=== PATIENT | female | born 1950 | race Caucasian/White ===

== ENCOUNTER → 2016-10-21 | Outpatient (CLI) | payer MEDICARE, BC, OTHER ==
[2016-10-21 13:47] LABS: ALBUMIN 4.5 g/dL (3.5-5.0); ANION GAP 14 (5-19); BLOOD UREA NITROGEN 22 mg/dL (7-20); CARBON DIOXIDE 30 mmol/L (22-30); CHLORIDE 97 mmol/L (98-107); GLUCOSE 245 mg/dL (75-110); POTASSIUM 3.1 mmol/L (3.6-5.0); SODIUM 140.8 mmol/L (137-145)
[2016-10-22 16:40] LABS: A/G RATIO 1.1 (0.7-1.7); ALBUMIN 2 3.5 g/dL (2.9-4.4); ALPHA-1-GLOBULIN 2 0.2 g/dL (0.0-0.4); GAMMA GLOBULIN 0.9 g/dL (0.4-1.8); PROTEIN TOTAL SERUM 6.6 g/dL (6.0-8.5)
[2016-10-26 14:43] LABS: PTH RELATED PEPTIDE <1.1 pmol/L (.)
== END ==
LOC: OD 11:35
PROVIDERS: ATTEND Internal Medicine Nephrology
DX: E83.52 Hypercalcemia (principal)
CPT/HCPCS: 36415; 80048; 82040; 82397; 84165

== ENCOUNTER → 2016-11-05 | Outpatient (CLI) | payer MEDICARE, BC, OTHER | LOC: RAD 07:39 | PROVIDERS: ATTEND Internal Medicine Nephrology | DX: N18.3 Chronic kidney disease, stage 3 (moderate) (principal); E21.3 Hyperparathyroidism, unspecified | CPT/HCPCS: 78070; A9500; Q9969 ==

== ENCOUNTER 2016-12-02 06:54 | Day surgery (SDC) | payer MEDICARE, BC, OTHER ==
[2016-12-01 09:10] LABS: HEMATOCRIT 47.5 % (36.0-47.0); HEMOGLOBIN 16.1 g/dL (12.0-15.5); HGB HCT DIFFERENCE 0.8; MEAN CORPUSCULAR HEMOGLOBIN 30.1 pg (27.0-33.4); MEAN CORPUSCULAR HGB CONC 33.8 g/dL (32.0-36.0); MEAN CORPUSCULAR VOLUME 89 fl (80-97); RED BLOOD COUNT 5.35 10^6/uL (3.72-5.28); RED CELL DISTRIBUTION WIDTH 14.6 % (11.5-14.0); WHITE BLOOD COUNT 7.7 10^3/uL (4.0-10.5)
[2016-12-01 09:36] LABS: ANION GAP 11 (5-19); BLOOD UREA NITROGEN 17 mg/dL (7-20); CARBON DIOXIDE 35 mmol/L (22-30); CHLORIDE 95 mmol/L (98-107); GLUCOSE 290 mg/dL (75-110); POTASSIUM 3.2 mmol/L (3.6-5.0); SODIUM 140.7 mmol/L (137-145)
--- NOTE | 2016-12-01 12:00 | EKG REPORT ---
SEVERITY:- ABNORMAL ECG - SINUS BRADYCARDIA NONSPECIFIC IVCD WITH LAD LEFT VENTRICULAR HYPERTROPHY : Confirmed by: Vannessa Callaway MD 01-Dec-2016 11:59:36
[~2016-12-02 06:54] MED LIST: CIPROFLOXACIN 400 MG/D5W RTU 400 MG/200 ML RTUPB IV PRN; LIDOCAINE 0.5% INJ-PF (5 MG/ML) 50 ML SDV SUBCUT PRN; NORMAL SALINE 1000 ML (RENAL PATIENTS) IV PRN
[2016-12-02] MEDS ORDERED: LIDOCAINE 1%/EPINEPHRINE INJ 20 ML VIAL ONE (07:09)
[2016-12-02 07:40] LABS: PROTHROMBIN TIME 12.4 SEC (11.4-15.4)
[2016-12-02 07:41] LABS: PARTIAL THROMBOPLASTIN TIME 25.3 SEC (23.5-35.8)
[2016-12-02] MEDS ORDERED: MIDAZOLAM 2 MG/2 ML INJ ONE (08:32)
[2016-12-02] MEDS ORDERED: FENTANYL CITRATE INJ/PF 100 MCG/2 ML AMPUL ONE (08:32)
[2016-12-02] MEDS ORDERED: PROPOFOL INJ 200 MG/20 ML VIAL IV ONE (08:32)
[2016-12-02] MEDS ORDERED: FENTANYL CITRATE INJ/PF 100 MCG/2 ML AMPUL IV PRN ×3 (09:31)
[2016-12-02] MEDS ORDERED: DIPHENHYDRAMINE HCL 50 MG/ML VIAL IV PRN (09:31)
[2016-12-02] MEDS ORDERED: PROMETHAZINE HCL INJ 25 MG/1 ML VIAL IV PRN ×2 (09:31)
[2016-12-02] MEDS ORDERED: MEPERIDINE HCL/PF INJ 25 MG/1 ML DISP.SYRIN IV PRN (09:31)
--- NOTE | 2016-12-02 09:59 | Operative Report ---
Operative Report DATE OF SURGERY: 12/02/16 PREOPERATIVE DIAGNOSIS: Lipoma of the back POSTOPERATIVE DIAGNOSIS: Same OPERATION: Complete excision of back lipoma with drain placement SURGEON: JOHN SANDERSON FOREIGN BANKNOTE TELLER TRADER: JOEY KAPADIA ANESTHESIA: LMAC TISSUE REMOVED OR ALTERED: scant COMPLICATIONS: none ESTIMATED BLOOD LOSS: scant INTRAOPERATIVE FINDINGS: See below PROCEDURE: Patient was seen in the preoperative holding area where the back lipoma was marked. The patient was taken to the operating room where LMAC anesthesia was induced. She was placed in left lateral decubitus position, on beanbag with the central back exposed. The back was prepped and draped sterile fashion with Betadine. Surgical plan and surgical timeout were conducted. The skin was anesthetized 1% lidocaine with epinephrine. A longitudinal vertically oriented incision was made parallel to the spine [place] 4 cm lateral electrocautery and gentle traction. We'll dissection was taken down to the intact fascia in fact it was actually adherent to this area and we performed a resection of a 2 cm area ; Specimen was passed off into fragments as lipoma of the back. Hemostasis was achieved, large bleb placed secured with skin with a 2-0 Prolene suture brought out the right posterior lateral flap. The incision was closed with multiple 3- 0 Vicryl sutures, benzoin and Steri-Strips and compressive dressing. She tolerated the procedure well taken recovery in stable condition The physician laboratory chemical assistant, Ms. Kapadia, provided assistance during this case by: Assisting , retracting tissue, instillation of local anesthesia and closure of skin incisions.
--- NOTE | 2016-12-02 10:01 | PDOC DISCHARGE SUMMARY ---
Discharge Summary (SDC) - Discharge Final Diagnosis: Lipoma of the back Date of Surgery: 12/02/16 Discharge Date: 12/02/16 Condition: Good Treatment or Instructions: [facility] [address] [place], [place] [id number] Discharge Instructions: Back Surgery 1. General Information: a. Do not drive a car or operate machinery for 1-2 weeks or as long as taking narcotics for pain. b. Do not consume alcohol, tranquilizers, sleeping medications or any non- prescribed medications for 24 hours unless approved by your doctor or as long as taking pain medication. c. Do not make important decisions or sign any important papers for the first 24 hours after surgery. d. When discharged home the same day of surgery have a responsible person with you for the first night. 2. Activity Restrictions: 4 weeks. a. Avoid heavy lifting > 10 lbs, straining, sports, mowing lawn, shoveling snow, vacuum cleaning and bending over a lot. Limit bending to taking a shower and getting dressed. Sleep with head elevated (2 pillows). b. Walking is important to avoid blood clots in the legs and deep breathing can prevent pneumonia. c. It is fine to go up and down steps, ride in a car, and use a stationary bike with low resistance. 3. Treatment: a. The dressing can be removed the day after surgery and to shower then daily is fine, but you should not bathe in the tub or go swimming for 2 weeks. The paper strips (steri-strips) on the skin will fall off and can get wet with a shower, just pat them dry. The sutures dissolve and the strips will be removed in the office on your follow up visit if they have not fallen off by then. May shower 24 hours after surgery; if your incision was glued you may wash your neck and expect glue to fall off in about 2 weeks. b. Do not use oils, powders or lotion on your incision until after the first postoperative visit. Then you may begin to apply daily to the incision a cream of your choice (Vitamin E, cocoa butter, scar creams) to help soften the scar. Please teach patient drain care; patient and family to record drain output. c. If you are fair skinned it would be koenig to use sunscreen on the scar for the first 6 months or keep it covered to avoid tanning pigment deposits being trapped in the scar creating a dark line instead of a pink scar. 4. Medications: a. You may take narcotic prescription tablets for pain if needed, one or two every 4 hours (Percocet ). b. Stop the narcotic when able since you cannot take and drive and they may cause constipation. You may switch to plain Tylenol, Advil or Aleve as you transition from the narcotic. Many adults find good pain relief with Ibuprofen 600-800 mg three times a day with meals to work well to avoid narcotic use. High doses of Ibuprofen should only be used for short courses since it can cause indigestion, ulcer bleeding in the stomach and harm kidney function. c. You should resume all normal medications unless a change is specified by your doctors. d. a. If going home same day of surgery you should begin with clear liquids and if do well then advance to a normal diet with foods low in fat and protein. Small portion sizes may be koenig the first night to lessen risk of vomiting. b. When discharged after a hospital stay you may resume a normal diet. 6. Notify Physician If: a. Worsening of pain or swelling in neck, persistent bleeding at the operative site, nausea and vomiting, fever above 101, unable to urinate and bladder pressure after 8-12 hours, increased redness, drainage, or foul smelling discharge from the incision. b. If you have difficulty breathing or chest pain, call an ambulance and/or go to the Emergency Room. 7. Follow Up Care: a. Schedule a follow up appointment with your doctor for 2 weeks. In the event of any postoperative problems or questions or you may call the office during business hours or the On-Call physician evenings and weekends at [facility]. [facility] 8. I understand the instructions for my postoperative care as described above and a copy has been given to me. Patient/Significant Other Witness Date Prescriptions: Oxycodone HCl/Acetaminophen [Percocet 5-325 mg Tablet] 1 - 2 tab PO ASDIR PRN # 15 tablet PRN Reason: Discharge Diet: As Tolerated Discharge Activity: Activity As Tolerated Home Care Assistance: None Needed Report the Following to Your Physician Immediately: Shortness of Breath, Increase in Pain, Fever over 101 Degrees
[2016-12-02] MEDS: FENTANYL CITRATE INJ/PF 100 MCG/2 ML AMPUL ONE ×2 (10:25→10:35)
[2016-12-02] MEDS ORDERED: OXYCODONE-ACETAMINOPHEN 5-325 MG TABLET ONE (11:15)
[2016-12-02] MEDS ORDERED: OXYCODONE-ACETAMINOPHEN 5-325 MG TABLET PO ONE (11:45)
[2016-12-02 13:23] VITALS: BP 123/72
== END 2016-12-02 12:25 | disposition home or self-care (01) ==
LOC: OROUT 06:54
PROVIDERS: ATTEND Surgery
PROC: 0JB70ZX Excision of Back Subcutaneous Tissue and Fascia, Open Approach, Diagnostic (ICD-10-PCS; principal; 2016-12-02 09:00)
DX: D17.1 Benign lipomatous neoplasm of skin and subcutaneous tissue of trunk (principal); I10 Essential (primary) hypertension; M06.9 Rheumatoid arthritis, unspecified; I50.9 Heart failure, unspecified; J44.9 Chronic obstructive pulmonary disease, unspecified; G89.29 Other chronic pain; E11.40 Type 2 diabetes mellitus with diabetic neuropathy, unspecified; D50.9 Iron deficiency anemia, unspecified; G47.33 Obstructive sleep apnea (adult) (pediatric); M19.90 Unspecified osteoarthritis, unspecified site; E78.00 Pure hypercholesterolemia, unspecified; E21.3 Hyperparathyroidism, unspecified; N27.0 Small kidney, unilateral; I99.9 Unspecified disorder of circulatory system; E55.9 Vitamin D deficiency, unspecified; Z79.899 Other long term (current) drug therapy; Z88.8 Allergy status to other drugs, medicaments and biological substances; Z88.5 Allergy status to narcotic agent; Z88.0 Allergy status to penicillin; Z86.73 Personal history of transient ischemic attack (TIA), and cerebral infarction without residual deficits; Z95.5 Presence of coronary angioplasty implant and graft; Z79.82 Long term (current) use of aspirin; Z79.02 Long term (current) use of antithrombotics/antiplatelets; Z79.51 Long term (current) use of inhaled steroids; Z79.4 Long term (current) use of insulin
CPT/HCPCS: 93005; 36415 ×2; 82962; 82947; 84132; 85027; 85610; 85730; 80048; 88304 ×2; 71020; 93010; 21931; J2250; J3010; J3490; A9270; J2704; J0744; 300

== ENCOUNTER → 2017-01-06 | Outpatient (CLI) | payer MEDICARE, BC, OTHER ==
[2017-01-06 13:10] LABS: ANION GAP 10 (5-19); BLOOD UREA NITROGEN 17 mg/dL (7-20); CALCIUM 10.6 mg/dL (8.4-10.2); CARBON DIOXIDE 32 mmol/L (22-30); CHLORIDE 95 mmol/L (98-107); CREATININE RESULT 0.98 mg/dL (0.52-1.25); PHOSPHORUS 3.3 mg/dL (2.5-4.5); POTASSIUM 3.3 mmol/L (3.6-5.0); SODIUM 137.1 mmol/L (137-145)
[2017-01-06 13:45] LABS: GLUCOSE 406 mg/dL (75-110)
[2017-01-07 08:14] LABS: VITAMIN D 25-HYDROXY 11.8 ng/mL (30.0-100.0)
== END ==
LOC: OD 11:25
PROVIDERS: ATTEND Internal Medicine Nephrology
DX: N18.3 Chronic kidney disease, stage 3 (moderate) (principal); E83.52 Hypercalcemia; E21.3 Hyperparathyroidism, unspecified
CPT/HCPCS: 36415; 80048; 82040; 82306; 83970; 84100

== ENCOUNTER → 2017-05-05 | Outpatient (CLI) | payer MEDICARE, BC, OTHER ==
[2017-05-05 11:49] LABS: ABSOLUTE BASOPHILS # (AUTO) 0.1 10^3/uL (0.0-0.2); ABSOLUTE EOSINOPHILS # (AUTO) 0.4 10^3/uL (0.0-0.6); ABSOLUTE LYMPHOCYTES (AUTO) 2.6 10^3/uL (0.5-4.7); ABSOLUTE MONOCYTES (AUTO) 0.7 10^3/uL (0.1-1.4); ABSOLUTE NEUT (AUTO) 4.6 10^3/uL (1.7-8.2); BASOPHILS % (AUTO) 1.4 % (0-2); EOSINOPHILS % (AUTO) 4.5 % (0-6); HEMATOCRIT 46.6 % (36.0-47.0); HEMOGLOBIN 15.7 g/dL (12.0-15.5); HGB HCT DIFFERENCE 0.5; LYMPHOCYTES % (AUTO) 30.9 % (13-45); MEAN CORPUSCULAR HEMOGLOBIN 30.4 pg (27.0-33.4); MEAN CORPUSCULAR HGB CONC 33.7 g/dL (32.0-36.0); MEAN CORPUSCULAR VOLUME 90 fl (80-97); MONOCYTES % (AUTO) 8.2 % (3-13); RED BLOOD COUNT 5.16 10^6/uL (3.72-5.28); RED CELL DISTRIBUTION WIDTH 13.9 % (11.5-14.0); WHITE BLOOD COUNT 8.3 10^3/uL (4.0-10.5)
[2017-05-05 12:26] LABS: ALANINE AMINOTRANSFERASE 34 U/L (9-52); ALBUMIN 4.7 g/dL (3.5-5.0); ALKALINE PHOSPHATASE 134 U/L (38-126); ANION GAP 13 (5-19); ASPARTATE AMINO TRANSFERASE 23 U/L (14-36); BILIRUBIN,DIRECT 0.4 mg/dL (0.0-0.4); BILIRUBIN,TOTAL 0.6 mg/dL (0.2-1.3); BLOOD UREA NITROGEN 18 mg/dL (7-20); CARBON DIOXIDE 32 mmol/L (22-30); CHLORIDE 99 mmol/L (98-107); CREATINE KINASE 80 U/L (30-135); CREATININE RESULT 1.06 mg/dL (0.52-1.25); GLUCOSE 69 mg/dL (75-110); POTASSIUM 3.7 mmol/L (3.6-5.0); SODIUM 144.4 mmol/L (137-145); TOTAL PROTEIN 8.3 g/dL (6.3-8.2)
[2017-05-05 12:29] LABS: ERYTHROCYTE SEDIMENTATION RATE 13 mm/hr (0-30)
== END ==
LOC: OD 10:18
PROVIDERS: ATTEND Internal Medicine Rheumatology
DX: R53.83 Other fatigue (principal); M79.1 Myalgia; Z79.899 Other long term (current) drug therapy; M25.50 Pain in unspecified joint; M05.79 Rheumatoid arthritis with rheumatoid factor of multiple sites without organ or systems involvement; M10.9 Gout, unspecified; N18.4 Chronic kidney disease, stage 4 (severe)
CPT/HCPCS: 36415; 80053; 82550; 84550; 85025; 85652; 86140

== ENCOUNTER → 2017-05-10 | Outpatient (CLI) | payer MEDICARE, BC, OTHER ==
[2017-05-10 12:14] LABS: ABSOLUTE BASOPHILS # (AUTO) 0.1 10^3/uL (0.0-0.2); ABSOLUTE EOSINOPHILS # (AUTO) 0.4 10^3/uL (0.0-0.6); ABSOLUTE LYMPHOCYTES (AUTO) 2.8 10^3/uL (0.5-4.7); ABSOLUTE MONOCYTES (AUTO) 0.8 10^3/uL (0.1-1.4); ABSOLUTE NEUT (AUTO) 5.2 10^3/uL (1.7-8.2); BASOPHILS % (AUTO) 1.3 % (0-2); EOSINOPHILS % (AUTO) 4.8 % (0-6); HEMATOCRIT 42.5 % (36.0-47.0); HEMOGLOBIN 14.6 g/dL (12.0-15.5); HGB HCT DIFFERENCE 1.3; LYMPHOCYTES % (AUTO) 29.6 % (13-45); MEAN CORPUSCULAR HEMOGLOBIN 30.5 pg (27.0-33.4); MEAN CORPUSCULAR HGB CONC 34.4 g/dL (32.0-36.0); MEAN CORPUSCULAR VOLUME 89 fl (80-97); RED BLOOD COUNT 4.79 10^6/uL (3.72-5.28); SEGMENTED NEUTROPHILS % (AUTO) 56.3 % (42-78); WHITE BLOOD COUNT 9.3 10^3/uL (4.0-10.5)
[2017-05-10 12:36] LABS: ALBUMIN 4.2 g/dL (3.5-5.0); ANION GAP 11 (5-19); BLOOD UREA NITROGEN 17 mg/dL (7-20); CALCIUM 11.1 mg/dL (8.4-10.2); CARBON DIOXIDE 32 mmol/L (22-30); CHLORIDE 100 mmol/L (98-107); CREATININE RESULT 1.12 mg/dL (0.52-1.25); GLUCOSE 94 mg/dL (75-110); PHOSPHORUS 3.5 mg/dL (2.5-4.5); POTASSIUM 3.6 mmol/L (3.6-5.0); SODIUM 142.6 mmol/L (137-145)
[2017-05-11 07:27] LABS: VITAMIN D 25-HYDROXY 26.7 ng/mL (30.0-100.0)
[2017-05-12 11:40] LABS: CREATININE URINE 34.3 mg/dL (Not Estab.); MICROALBUMIN URINE 4.1 ug/mL (Not Estab.)
== END ==
LOC: OD 10:57
PROVIDERS: ATTEND Internal Medicine Nephrology
DX: N18.3 Chronic kidney disease, stage 3 (moderate) (principal); R80.9 Proteinuria, unspecified; E55.9 Vitamin D deficiency, unspecified; E21.3 Hyperparathyroidism, unspecified
CPT/HCPCS: 36415; 80048; 82040; 82043; 82306; 82570; 83970; 84100; 85025

== ENCOUNTER → 2017-06-18 | Outpatient (CLI) | payer MEDICARE, BC, OTHER | LOC: OD 09:02 | PROVIDERS: ATTEND Internal Medicine | DX: E11.9 Type 2 diabetes mellitus without complications (principal) | CPT/HCPCS: 36415; 83036 ==

== ENCOUNTER 2017-08-24 07:35 | Day surgery (SDC) | payer MEDICARE, BC, OTHER ==
--- NOTE | 2017-08-18 12:00 | HISTORY AND PHYSICAL E ---
History and Physical NAME: JHONATAN JOYNER : 1950 AGE: 66Y ADMITTED: 08/24/2017 ROOM: REFERRING PHYSICIAN: Dr. Peterson CHIEF COMPLAINT: Patient presented at this time regarding colonoscopy. She did have recent upper scope showing 2 mm polyp in the esophagus benign, small. She did have upper endoscopy in 2014, atypical chest pain. The patient's CEA is elevated at 6.5. High CEA. The patient presented at this time regarding colonoscopy. REVIEW OF SYSTEMS: RESPIRATORY: COPD, sleep apnea, CPAP. CARDIAC: Stent x7. Hypertension. ENDOCRINE: Diabetes. Kidney failure stage IV. GASTROINTESTINAL: Constipation and diarrhea. MUSCULOSKELETAL: Rheumatoid arthritis. FAMILY HISTORY: Father is . Mom has CVA. PHYSICAL EXAMINATION: VITAL SIGNS: Blood pressure is 120/70, weight 172, pulse 80, respirations 18, temp is 98. HEAD, EYES, EARS, NOSE, THROAT: Normal. NECK: Supple. CARDIOVASCULAR: Normal. LUNGS: Clear. ABDOMEN: Soft. NEUROLOGIC: Negative. CONCLUSION: Patient presented regarding colonoscopy. PLAN: Colon exam. DICTATING PHYSICIAN: FERNANDA SMALLS M.D. [id number] PHY#: [id number] ID: [id number] JOB#: [id number] ACCT: [id number] cc:ELDA PETERSON M.D., FERNANDA Haider >
[~2017-08-24 07:35] MED LIST changes: -CIPROFLOXACIN 400 MG/D5W RTU 400 MG/200 ML RTUPB IV PRN; +EPINEPHRINE INJ 1 MG/10 ML DISP.SYRIN ONE; +FLUMAZENIL INJ 0.5 MG/5 ML VIAL ONE; +GLUCAGON,HUMAN RECOMB 1 MG INJ ONE; +GLYCOPYRROLATE INJ 0.4 MG/2 ML VIAL ONE; -LIDOCAINE 0.5% INJ-PF (5 MG/ML) 50 ML SDV SUBCUT PRN; +LIDOCAINE 2% JELLY 30 ML TUBE ONE; +NALOXONE HCL INJ/PF 0.4 MG/1 ML SDV ONE; -NORMAL SALINE 1000 ML (RENAL PATIENTS) IV PRN; +ONDANSETRON HCL INJ/PF 4 MG/2 ML SDV ONE
[2017-08-24] MEDS: MIDAZOLAM 2 MG/2 ML INJ ONE ×2 (08:10→08:15)
[2017-08-24] MEDS: FENTANYL CITRATE INJ/PF 100 MCG/2 ML AMPUL ONE ×2 (08:12→08:19)
[2017-08-24 09:30] LABS: ABSOLUTE BASOPHILS # (AUTO) 0.1 10^3/uL (0.0-0.2); ABSOLUTE EOSINOPHILS # (AUTO) 0.2 10^3/uL (0.0-0.6); ABSOLUTE LYMPHOCYTES (AUTO) 1.7 10^3/uL (0.5-4.7); ABSOLUTE MONOCYTES (AUTO) 0.7 10^3/uL (0.1-1.4); ABSOLUTE NEUT (AUTO) 9.4 10^3/uL (1.7-8.2); BASOPHILS % (AUTO) 0.7 % (0-2); EOSINOPHILS % (AUTO) 1.7 % (0-6); HEMOGLOBIN 13.7 g/dL (12.0-15.5); HGB HCT DIFFERENCE 0.1; LYMPHOCYTES % (AUTO) 14.1 % (13-45); MEAN CORPUSCULAR HEMOGLOBIN 29.1 pg (27.0-33.4); MEAN CORPUSCULAR HGB CONC 33.4 g/dL (32.0-36.0); MEAN CORPUSCULAR VOLUME 87 fl (80-97); RED CELL DISTRIBUTION WIDTH 14.6 % (11.5-14.0); SEGMENTED NEUTROPHILS % (AUTO) 77.5 % (42-78); WHITE BLOOD COUNT 12.1 10^3/uL (4.0-10.5)
--- NOTE | 2017-08-24 10:16 | OPERATIVE REPORT E ---
Operative Report NAME: JHONATAN JOYNER : 1950 AGE: 66Y DATE OF SURGERY: 08/24/2017 ROOM: PREOPERATIVE DIAGNOSIS: Colon screening, high CEA. POSTOPERATIVE DIAGNOSIS: Colonoscopy to the cecum, sessile 4 mm sigmoid polyp, resected with a snare with no difficulties. Patient did have a 1 to 2 mm polyp close to the anal area. A 2 mm polyp was seen in the cecum but there was moderate amount of solid stool and lavage. When we got ready to biopsy I spent 10 minutes as I could not see it, strong peristalsis. OPERATION: Colonoscopy. SURGEON: FERNANDA SMALLS M.D. PROCEDURE: Again, cecum 2 mm polyp, unable to biopsy because of inadequate prep, moderate amount of stool, solid. Ascending colon normal. Transverse colon normal. Sigmoid pedunculated polyp resected with no difficulties, most likely adenoma polyp. Anal polyp, 2 mm. The patient tolerated the procedure well. She did have mild diverticulosis in the sigmoid colon and she does have inadequate prep, solid stool scattered all around the colon. PLAN: 1. Hold aspirin and Plavix for 3 days. 2. Soft low-residue diet for 3 days. 3. Baseline CBC, repeat CEA. 4. Awaiting biopsy. 5. Patient needs to have follow-up colonoscopy in 3 to 6 months with better prep. 6. Discussed with Dr. Peterson and Dr. Villarreal. Patient to see Dr. Villarreal early next year to prepare for follow-up colonoscopy. DICTATING PHYSICIAN: FERNANDA SMALLS M.D. [id number] PHY#: [id number] ID: [id number] JOB#: [id number] ACCT: [id number] cc:ELDA PETERSON M.D., MAHMOUD M.D. EWEJE, PETER A. M.D. >
--- NOTE | 2017-08-24 10:16 | DISCHARGE SUMMARY E ---
Discharge Summary NAME: JHONATAN JOYNER : 1950 AGE: 66Y ADMITTED: 08/24/2017 DISCHARGED: 08/24/2017 HOSPITAL COURSE: The patient is a 66-year-old female who has the following: She does have cardiac stents x7, she does have history of congestive heart failure, stage 3 kidney disease, reflux, hypertension, diabetes, sleep apnea, fibromyalgia. She underwent colonoscopy today, was successful to the cecum but the prep was inadequate. She does have moderate amount of solid stool. She did have mild diverticulosis in her sigmoid. A sessile polyp in the sigmoid, resected with a snare with no difficulties, most likely adenoma polyp, 4 mm. She did have 1 to 2 mm anal polyp close to the verge and she did have a 2 mm polyp in the cecum, was difficult to biopsy because of debris and solid stool. DISCHARGE PLAN: 1. Soft, low-residue diet for 3 days. 2. Hold aspirin and Plavix for 3 days. 3. Baseline CBC and CEA. 4. We will see the patient in the office in the next few weeks, awaiting histopathology. DICTATING PHYSICIAN: FERNANDA SMALLS M.D. [id number] PHY#: [id number] ID: [id number] JOB#: [id number] ACCT: [id number] cc:ELDA PETERSON M.D., MAHMOUD M.D. EWEJE, PETER A. M.D. >
[2017-08-24 11:03] VITALS: BP 117/58
== END 2017-08-24 10:00 | disposition home or self-care (01) ==
LOC: END 07:35
PROVIDERS: ATTEND Specialist
PROC: 0DBN8ZX Excision of Sigmoid Colon, Via Natural or Artificial Opening Endoscopic, Diagnostic (ICD-10-PCS; principal; 2017-08-24 08:00)
DX: Z12.11 Encounter for screening for malignant neoplasm of colon (principal); D12.0 Benign neoplasm of cecum; D12.5 Benign neoplasm of sigmoid colon; K57.30 Diverticulosis of large intestine without perforation or abscess without bleeding; I12.9 Hypertensive chronic kidney disease with stage 1 through stage 4 chronic kidney disease, or unspecified chronic kidney disease; E11.22 Type 2 diabetes mellitus with diabetic chronic kidney disease; N18.4 Chronic kidney disease, stage 4 (severe); R97.0 Elevated carcinoembryonic antigen [CEA]; M06.9 Rheumatoid arthritis, unspecified; J44.9 Chronic obstructive pulmonary disease, unspecified; Z79.899 Other long term (current) drug therapy
CPT/HCPCS: 45380; 45385; 36415; 82962; 82378; 85025; 88305 ×2; J2250; J3010; J1610; J0171; J2310; J2405; J3490

== ENCOUNTER 2017-10-19 19:43 | Observation (INO) | payer MEDICARE, BC, OTHER ==
--- NOTE | 2017-10-19 20:20 | ER Document Report ---
ED Cardiac - General Mode of Arrival: Medic Information source: Patient TRAVEL OUTSIDE OF THE [place] IN LAST 30 DAYS: No - HPI Patient complains to provider of: Chest pain, Shortness of breath <JATINDER STOCKTON - Last Filed: 10/19/17 23:45> <MABLESUSIEEZEQUIEL - Last Filed: 10/19/17 23:56> - General Chief Complaint: Chest Pain Stated Complaint: CHEST PAIN Time Seen by Provider: 10/19/17 20:03 Notes: Patient is a 66 year old female with a history of cardiac stents x7, [place] CHF, hypertension, diabetes, and high cholesterol presenting to the emergency department via EMS complaining of chest pain onset this morning. Patient states when her chest pain first occurred she took Nitrospray which alleviated her symptoms. Patient then states her symptoms progressively gotten worse and the Nitrospray did not alleviate her pain. Patient states her pain is exacerbated by any movement and goes into her left shoulder and into her neck. Patients associated symptoms include nausea, shortness of breath, chills, and diaphoresis. Patient denies a history of COPD or blood clots. Patient states her PCP is Dr. Guo and Dr. Bernal (Ehrhardt) is her marketing support coordinator. Patient also states she was given Fentanyl by EMS prior to arrival to the emergency department. Patient states her last cardiac workup was in July 2017. Patient as also had not any insulin for 1 week due to her loosing her insulin pen. (JATINDER STOCKTON) - Related Data Allergies/Adverse Reactions: cyclobenzaprine [From Flexeril] Allergy (Severe, Verified 08/23/17 13:46) rash propoxyphene Allergy (Severe, Verified 08/23/17 13:46) Hives sumatriptan [From Imitrex] Allergy (Severe, Verified 08/23/17 13:46) Anaphylaxis morphine [Morphine] Allergy (Intermediate, Verified 08/23/17 13:46) Generalized rash Penicillins Allergy (Intermediate, Verified 08/23/17 13:46) Generalized rash propoxyphene HCl [From Darvon] Allergy (Intermediate, Verified 08/23/17 13:46) Generalized rash sertraline [Sertraline] Allergy (Intermediate, Verified 08/23/17 13:46) Generalized rash Xuyyjvk-Dhj-Vrm Reductase Inhibitor Allergy (Intermediate, Verified 08/23/17 13: 46) Generalized rash Home Medications: Current Home Medications Furosemide [Lasix 40 mg Tablet] 80 mg PO BID 10/19/17 [History] Insulin Aspart [Novolog Flexpen] 15 unit SUBCUT AC 10/19/17 [History] Insulin Glargine,Hum.rec.anlog [Lantus Insulin 100 Unit/mL] 40 unit SUBCUT HSP PRN 10/19/17 [History] Oxycodone HCl/Acetaminophen [Percocet 10-325 Mg Tablet] 1 each PO Q8H PRN [History] Past Medical History - General Information source: Patient - Social History Smoking Status: Never Smoker Cigarette use (# per day): No Chew tobacco use (# tins/day): No Smoking Education Provided: No Frequency of alcohol use: None Family History: Reviewed & Not Pertinent - Past Medical History Cardiac Medical History: Reports: Hx Congestive Heart Failure, Hx Coronary Artery Disease - cardiac stents x 7, Hx Heart Attack - 2011, Hx Hypercholesterolemia, Hx Hypertension - on meds Pulmonary Medical History: Reports: Hx COPD - no meds Endocrine Medical History: Reports: Hx Diabetes Mellitus Type 1, Hx Diabetes Mellitus Type 2 Musculoskeltal Medical History: Reports Hx Arthritis - RA Past Surgical History: Reports: Hx Cardiac Catheterization - 7stents, Hx Cardiac Surgery - 7 stents - Immunizations Immunizations up to date: Yes Hx Diphtheria, Pertussis, Tetanus Vaccination: No Hx Pneumococcal Vaccination: 08/11/12 <JATINDER STOCKTON - Last Filed: 10/19/17 23:45> Review of Systems - Review of Systems Constitutional: See HPI, Chills, Diaphoresis EENT: No symptoms reported Cardiovascular: See HPI, Chest pain Respiratory: See HPI, Short of breath Gastrointestinal: No symptoms reported Genitourinary: No symptoms reported Female Genitourinary: No symptoms reported Musculoskeletal: No symptoms reported Skin: No symptoms reported Hematologic/Lymphatic: No symptoms reported Neurological/Psychological: No symptoms reported -: Yes All other systems reviewed and negative <JATINDER STOCKTON - Last Filed: 10/19/17 23:45> Physical Exam <JATINDER STOCKTON - Last Filed: 10/19/17 23:45> <EZEQUIEL MARTINEZ - Last Filed: 10/19/17 23:56> - Vital signs Vitals: Resp Pulse Ox 12 93 10/19/17 20:06 10/19/17 20:06 - Notes Notes: GENERAL: Alert, interacts well. No acute distress. HEAD: Normocephalic, atraumatic. EYES: Pupils equal, round, and reactive to light. Extraocular movements intact. ENT: Oral mucosa moist, tongue midline. NECK: Full range of motion. Supple. Trachea midline. LUNGS: Clear to auscultation bilaterally, no wheezes, rales, or rhonchi. Intermittent hypoxia with a low pulse ox of 92 on room air. No respiratory distress. HEART: 3/6 systolic murmur. No gallops or rubs. ABDOMEN: Soft, non-tender. Non-distended. Bowel sounds present in all 4 quadrants. EXTREMITIES: Moves all 4 extremities spontaneously. No edema, radial and dorsalis pedis pulses 2/4 bilaterally. No cyanosis. NEUROLOGICAL: Alert and oriented x3. Normal speech. PSYCH: Normal affect, normal mood. SKIN: Warm, dry, normal turgor. No rashes or lesions noted. (JATINDER STOCKTON) Course - Laboratory Result Diagrams: 10/19/17 20:08 10/19/17 21:05 <JATINDER STOCKTON - Last Filed: 10/19/17 23:45> - Laboratory Result Diagrams: 10/19/17 20:08 10/19/17 21:05 <EZEQUIEL MARTINEZ - Last Filed: 10/19/17 23:56> - Re-evaluation Re-evalutation: 10/19/17 22:10 CBC unremarkable, coags normal, CMP shows acute renal failure with a BUN of 23 and creatinine 1.28, hyperglycemia with a glucose of 421, calcium is quite elevated at 12.4, previously in April 2017 it was 11, liver enzymes show elevation in alkaline phosphatase at 184 otherwise unremarkable, troponin is negative but detectable at 0.041. Chest x-ray shows no acute process. EKG is nonischemic. Discussed patient with Dr. Guo who agrees to accept the patient to his service in admission status to the telemetry care unit. Advises hydration at this point for the hypercalcemia. He will continue to follow as an inpatient. ( EZEQUIEL MARTINEZ) - Vital Signs Vital signs: Temp Pulse Resp BP Pulse Ox 98.1 F 14 108/76 93 10/19/17 20:09 10/19/17 22:00 10/19/17 21:39 10/19/17 22:00 - Laboratory Laboratory results interpreted by me: 10/19/17 10/19/17 20:08 21:05 RDW 14.8 H Potassium 3.5 L Chloride 94 L Carbon Dioxide 33 H BUN 23 H Creatinine 1.28 H Est GFR ( Amer) 50 L Est GFR (Non-Af Amer) 42 L Glucose 421 H* Calcium 12.4 H* Alkaline Phosphatase 184 H - EKG Interpretation by Me Additional EKG results interpreted by me: 10/19/17 22:11 EKG shows sinus rhythm rate of 65, first-degree AV block, no ST segment elevations or depressions, there are T-wave inversions noted in lead III,, poor R-wave progression consistent with prior scarring from stents and MIs per my interpretation. (EZEQUIEL MARTINEZ) Discharge <JATINDER STOCKTON - Last Filed: 10/19/17 23:45> - [facility] Admitted: Telemetry <EZEQUIEL MARTINEZ - Last Filed: 10/19/17 23:56> - Discharge Clinical Impression: Chest pain, rule out acute myocardial infarction, Hypercalcemia Diabetes mellitus type 2 with complications, uncontrolled Qualifiers: Diabetes mellitus [facility] insulin use: with [employer] use Qualified Code(s): E11.8 - Type 2 diabetes mellitus with unspecified complications Hyperglycemia due to type 2 diabetes mellitus Qualifiers: Diabetes mellitus [facility] insulin use: with [facility] use Qualified Code(s): E11.65 - Type 2 diabetes mellitus with hyperglycemia Condition: Fair Disposition: ADMITTED INPATIENT Scribe Attestation: 10/19/17 23:56 I personally performed the services described in the documentation, reviewed and edited the documentation which was dictated to the scribe in my presence, and it accurately records my words and actions. (EZEQUIEL MARTINEZ) Scribe Documentation - Scribe Written by Chago:: Chago Gómez, 10/19/2017 20:24 acting as scribe for :: Lita <JATINDER STOCKTON - Last Filed: 10/19/17 23:45>
[2017-10-19 20:24] LABS: ABSOLUTE BASOPHILS # (AUTO) 0.1 10^3/uL (0.0-0.2); ABSOLUTE EOSINOPHILS # (AUTO) 0.3 10^3/uL (0.0-0.6); ABSOLUTE LYMPHOCYTES (AUTO) 1.8 10^3/uL (0.5-4.7); ABSOLUTE MONOCYTES (AUTO) 0.5 10^3/uL (0.1-1.4); ABSOLUTE NEUT (AUTO) 6.3 10^3/uL (1.7-8.2); EOSINOPHILS % (AUTO) 3.4 % (0-6); HEMATOCRIT 42.7 % (36.0-47.0); HEMOGLOBIN 14.8 g/dL (12.0-15.5); LYMPHOCYTES % (AUTO) 20.3 % (13-45); MEAN CORPUSCULAR HEMOGLOBIN 30.1 pg (27.0-33.4); MEAN CORPUSCULAR HGB CONC 34.7 g/dL (32.0-36.0); MEAN CORPUSCULAR VOLUME 87 fl (80-97); PLATELET COUNT 276 10^3/uL (150-450); RED BLOOD COUNT 4.93 10^6/uL (3.72-5.28); RED CELL DISTRIBUTION WIDTH 14.8 % (11.5-14.0); SEGMENTED NEUTROPHILS % (AUTO) 69.3 % (42-78); TOTAL CELLS COUNTED % (AUTO) 100 %
--- NOTE | 2017-10-19 21:18 | RADIOLOGY REPORT (SQ) ---
EXAM DESCRIPTION: CHEST SINGLE VIEW COMPLETED DATE/TIME: 10/19/2017 9:03 pm REASON FOR STUDY: bed 13 cp COMPARISON: 12/01/2016. EXAM PARAMETERS: NUMBER OF VIEWS: One view. TECHNIQUE: Single frontal radiographic view of the chest acquired. RADIATION DOSE: NA LIMITATIONS: None. FINDINGS: LUNGS AND PLEURA: No opacities, masses or pneumothorax. No pleural effusion. MEDIASTINUM AND HILAR STRUCTURES: No masses. Contour normal. HEART AND VASCULAR STRUCTURES: Heart normal in size. Normal vasculature. BONES: No acute findings. HARDWARE: None in the chest. OTHER: No other significant finding. IMPRESSION: NO ACUTE RADIOGRAPHIC FINDING IN THE CHEST. TECHNICAL DOCUMENTATION: JOB ID: [id number] [employer]- All Rights Reserved
[2017-10-19 21:34] LABS: PROTHROMBIN TIME 11.7 SEC (11.4-15.4)
[2017-10-19 21:36] LABS: ALANINE AMINOTRANSFERASE 31 U/L (9-52); ALBUMIN 3.9 g/dL (3.5-5.0); ALKALINE PHOSPHATASE 184 U/L (38-126); ANION GAP 13 (5-19); ASPARTATE AMINO TRANSFERASE 19 U/L (14-36); BILIRUBIN,DIRECT 0.3 mg/dL (0.0-0.4); BILIRUBIN,TOTAL 0.3 mg/dL (0.2-1.3); BLOOD UREA NITROGEN 23 mg/dL (7-20); CARBON DIOXIDE 33 mmol/L (22-30); CHLORIDE 94 mmol/L (98-107); CREATINE KINASE 79 U/L (30-135); POTASSIUM 3.5 mmol/L (3.6-5.0); SODIUM 139.6 mmol/L (137-145); TOTAL PROTEIN 6.9 g/dL (6.3-8.2)
[2017-10-19 21:44] LABS: CREATINE KINASE MB 2.28 ng/mL (<4.55)
[2017-10-19 21:50] LABS: TROPONIN I 0.041 ng/mL
[2017-10-19 21:54] LABS: CALCIUM 12.4 mg/dL (8.4-10.2); GLUCOSE 421 mg/dL (75-110)
[2017-10-19] MEDS ORDERED: NORMAL SALINE 500 ML IV ONE (22:08)
[2017-10-19] MEDS ORDERED: ASPIRIN 325 MG TABLET PO ONE (22:13)
[2017-10-19] MEDS ORDERED: INSULIN REG, HUMAN 100 UNIT/ML 3 ML VIAL (PYX) SUBCUT ONE (23:41)
[2017-10-20] MEDS ORDERED: (PENDING PHARMACY ID) (Oxycodone Hcl/Acetaminophen [Percocet 10-325 Mg Tablet] 1 EACH) PO PRN (00:04)
[2017-10-20] MEDS ORDERED: INSULIN GLARGINE,HUM.REC.ANLOG 300 UNIT/3 ML INSULN.PEN SUBCUT ONE ×3 (00:22→02:26)
[2017-10-20] MEDS ORDERED: OXYCODONE-ACETAMINOPHEN 5-325 MG TABLET PO PRN (00:26)
[2017-10-20] MEDS ORDERED: OXYCODONE HCL IR 5 MG TABLET PO PRN (00:27)
[2017-10-20] MEDS ORDERED: ACETAMINOPHEN 325 MG TABLET PO PRN (00:28)
[2017-10-20] MEDS ORDERED: DOCUSATE SODIUM 100 MG CAPSULE PO PRN (00:29)
[2017-10-20] MEDS ORDERED: ZOLPIDEM TARTRATE 5 MG TABLET PO PRN (00:29)
[2017-10-20] MEDS ORDERED: NORMAL SALINE 1000 ML 1,000 ML IV PRN (00:31)
[2017-10-20] MEDS ORDERED: ONDANSETRON HCL INJ/PF 4 MG/2 ML SDV IV PRN (00:31)
[2017-10-20] MEDS: NITROGLYCERIN 0.4 MG/TAB 25 TAB/BOTTLE SL PRN ×3 (01:22→16:13)
[2017-10-20 01:30] LABS: CREATINE KINASE MB 2.06 ng/mL (<4.55); TROPONIN I 0.064 ng/mL
[2017-10-20] MEDS ORDERED: HYDRALAZINE HCL 50 MG TABLET PO SCH ×2 (06:00→14:00)
[2017-10-20 07:11] LABS: ABSOLUTE BASOPHILS # (AUTO) 0.1 10^3/uL (0.0-0.2); ABSOLUTE EOSINOPHILS # (AUTO) 0.4 10^3/uL (0.0-0.6); ABSOLUTE LYMPHOCYTES (AUTO) 3.8 10^3/uL (0.5-4.7); ABSOLUTE MONOCYTES (AUTO) 0.8 10^3/uL (0.1-1.4); ABSOLUTE NEUT (AUTO) 3.8 10^3/uL (1.7-8.2); BASOPHILS % (AUTO) 1.4 % (0-2); EOSINOPHILS % (AUTO) 4.4 % (0-6); HEMATOCRIT 38.9 % (36.0-47.0); HEMOGLOBIN 13.7 g/dL (12.0-15.5); LYMPHOCYTES % (AUTO) 42.9 % (13-45); MEAN CORPUSCULAR HGB CONC 35.1 g/dL (32.0-36.0); MEAN CORPUSCULAR VOLUME 85 fl (80-97); MONOCYTES % (AUTO) 8.8 % (3-13); PLATELET COUNT 227 10^3/uL (150-450); RED BLOOD COUNT 4.56 10^6/uL (3.72-5.28); RED CELL DISTRIBUTION WIDTH 14.4 % (11.5-14.0); SEGMENTED NEUTROPHILS % (AUTO) 42.5 % (42-78); TOTAL CELLS COUNTED % (AUTO) 100 %; WHITE BLOOD COUNT 8.9 10^3/uL (4.0-10.5)
[2017-10-20 07:41] LABS: CREATINE KINASE MB 1.59 ng/mL (<4.55); TROPONIN I 0.072 ng/mL
--- NOTE | 2017-10-20 07:46 | EKG REPORT ---
SEVERITY:- ABNORMAL ECG - SINUS BRADYCARDIA LEFT AXIS DEVIATION LVH WITH SECONDARY REPOLARIZATION ABNORMALITY : Confirmed by: Efren Matson MD 20-Oct-2017 07:45:52
--- NOTE | 2017-10-20 07:47 | EKG REPORT ---
SEVERITY:- ABNORMAL ECG - SINUS RHYTHM NONSPECIFIC INTRAVENTRICULAR CONDUCTION DELAY ABNRM R PROG, CONSIDER ASMI OR LEAD PLACEMENT NONSPECIFIC ST-T CHANGES, DIFFUSE : Confirmed by: Efren Matson MD 20-Oct-2017 07:47:15
--- NOTE | 2017-10-20 07:47 | EKG REPORT ---
SEVERITY:- ABNORMAL ECG - SINUS RHYTHM LVH WITH IVCD AND SECONDARY REPOL ABNRM : Confirmed by: Efren Matson MD 20-Oct-2017 07:46:29
[2017-10-20 07:51] LABS: ALANINE AMINOTRANSFERASE 27 U/L (9-52); ALBUMIN 3.5 g/dL (3.5-5.0); ALKALINE PHOSPHATASE 119 U/L (38-126); ANION GAP 10 (5-19); ASPARTATE AMINO TRANSFERASE 19 U/L (14-36); BILIRUBIN,DIRECT 0.3 mg/dL (0.0-0.4); BILIRUBIN,TOTAL 0.3 mg/dL (0.2-1.3); BLOOD UREA NITROGEN 23 mg/dL (7-20); CALCIUM 11.7 mg/dL (8.4-10.2); CARBON DIOXIDE 33 mmol/L (22-30); CHLORIDE 104 mmol/L (98-107); CHOLESTEROL 246.04 mg/dL (0-200); CREATINE KINASE 46 U/L (30-135); GLUCOSE 99 mg/dL (75-110); SODIUM 147.3 mmol/L (137-145); TOTAL PROTEIN 6.5 g/dL (6.3-8.2); TRIGLYCERIDES 279 mg/dL (<150)
[2017-10-20 08:02] LABS: DIRECT LDL 160 mg/dL (<100)
[2017-10-20 08:05] LABS: VLDL CHOLESTEROL 55.8 mg/dL (10-31)
[2017-10-20 08:06] LABS: POTASSIUM 2.8 mmol/L (3.6-5.0)
[2017-10-20] MEDS: INSULIN LISPRO 100 UNIT/ML 3 ML VIAL SUBCUT SCH ×3 (08:11→17:33)
[2017-10-20] MEDS ORDERED: INFLUENZA ADLT QUAD (36MOS+) 2017-18 VAC 0.5 ML SYR IM PRN (08:45)
[2017-10-20] MEDS: POTASSI CL 20 MEQ/50 ML RIDER 20 MEQ/50 ML RTUPB IV SCH ×2 (09:42→11:43)
[2017-10-20] MEDS: FUROSEMIDE 40 MG TABLET PO SCH ×2 (09:44→18:23)
[2017-10-20] MEDS: LUBIPROSTONE 8 MCG CAPSULE PO SCH ×2 (09:45→18:23)
[2017-10-20] MEDS: PREGABALIN 75 MG CAPSULE PO SCH ×2 (09:45→18:23)
[2017-10-20] MEDS ORDERED: CLOPIDOGREL BISULFATE 75 MG TABLET PO SCH (10:00)
[2017-10-20] MEDS ORDERED: FERROUS SULFATE 325 MG TABLET PO SCH (10:00)
[2017-10-20] MEDS ORDERED: AMLODIPINE BESYLATE 10 MG TABLET PO SCH (10:00)
[2017-10-20] MEDS ORDERED: CARVEDILOL 12.5 MG TABLET PO SCH ×2 (10:00→22:00)
[2017-10-20] MEDS ORDERED: LANSOPRAZOLE 30 MG TAB.RAP.DR PO SCH ×2 (10:00→17:00)
[2017-10-20] MEDS ORDERED: ISOSORBIDE MONONITRATE 30 MG TAB.ER.24H PO SCH ×2 (10:00→22:00)
[2017-10-20] MEDS ORDERED: ASPIRIN 325 MG TABLET PO SCH (10:00)
[2017-10-20] MEDS ORDERED: POTASSIUM CHLORIDE 10 MEQ TABLET.SA PO SCH (11:00)
--- NOTE | 2017-10-20 11:42 | PDOC H&P ---
History of Present Illness Admission Date/PCP: 10/19/17 22:22 LAST SELBY Patient complains of: Chest pain since yesterday morning that got worse as the day progressed. History of Present Illness: JHONATAN JOYNER is a 66 year old female with history of DM2/HTN/Hyperlipidemia/CAD s.p stentsx7/CHF- systolic dysfunction/CKD stage 3/DM neuropathy/Vitamin D def./ TRACY on CPAP/Osteoarthritis/Constipation, who started having chest pain, retrosternal, 6/10, radiating to left shoulder and neck, that initially relieved with NTG spray, but started getting worse as the day progressed and not responding to NTG spray any longer, associated with dyspnea, nausea and diaphoresis. She was brought to ER by EMS. Her calcium was 12.4 and potassium later decreased from 3.5 to 2.8. She was admitted for 23-48 hours observation at Telemetry floor. Past Medical History Cardiac Medical History: Reports: Congestive Heart Failure, Coronary Artery Disease - cardiac stents x 7, Myocardial Infarction - 2012, Hyperlipidema, Hypertension - on meds Pulmonary Medical History: Reports: Chronic Obstructive Pulmonary Disease (COPD ) - no meds Denies: Asthma, Bronchitis, Pneumonia, Tuberculosis Neurological Medical History: Denies: Seizures Endocrine Medical History: Reports: Diabetes Mellitus Type 1, Diabetes Mellitus Type 2 Musculoskeltal Medical History: Reports: Arthritis - RA Psychiatric Medical History: Denies: Depression Hematology: Reports: Anemia Past Surgical History Past Surgical History: Reports: Cardiac Catheterization - 7stents Denies: Hysterectomy, Pacemaker Social History Smoking Status: Never Smoker Frequency of Alcohol Use: None Hx Recreational Drug Use: No Drugs: None Hx Prescription Drug Abuse: No - Advance Directive Resuscitation Status: Full Code Family History Family History: Reviewed & Not Pertinent Parental Family History Reviewed: Yes Children Family History Reviewed: Yes Sibling(s) Family History Reviewed.: Yes Medication/Allergy Home Medications: Aspirin [Aspirin 325 mg Tablet] 325 mg PO DAILY 04/07/12 Pregabalin [Lyrica] 150 mg PO BID 08/09/12 Clopidogrel Bisulfate [Plavix 75 mg Tablet] 75 mg PO DAILY 02/13/15 Ergocalciferol (Vitamin D2) [Vitamin D2] 50,000 unit PO Q7D 02/13/15 Isosorbide Mononitrate [Isosorbide Mononitrate ER] 60 mg PO DAILY 02/13/15 Lubiprostone [Amitiza 8 Mcg Capsule] 8 mcg PO BID 02/13/15 Carvedilol Phosphate [Coreg CR 40 mg Ext. Release Capsule] 1 cap PO DAILY Amlodipine Besylate [Norvasc 10 mg Tablet] 10 mg PO DAILY #30 tablet 11/22/15 Furosemide [Lasix 40 mg Tablet] 80 mg PO BID 10/19/17 Insulin Aspart [Novolog Flexpen] 15 unit SUBCUT AC 10/19/17 Insulin Glargine,Hum.rec.anlog [Lantus Insulin 100 Unit/mL] 40 unit SUBCUT HSP PRN 10/19/17 Oxycodone HCl/Acetaminophen [Percocet 10-325 Mg Tablet] 1 each PO Q8H PRN Hydralazine HCl 100 mg PO Q8 10/20/17 Ondansetron HCl [Zofran 4 mg Tablet] 4 mg PO BIDP PRN 10/20/17 Ranolazine [Ranexa 500 mg Tab.sr] 500 mg PO Q12 10/20/17 Allergies/Adverse Reactions: cyclobenzaprine [From Flexeril] Allergy (Severe, Verified 08/23/17 13:46) rash propoxyphene Allergy (Severe, Verified 08/23/17 13:46) Hives sumatriptan [From Imitrex] Allergy (Severe, Verified 08/23/17 13:46) Anaphylaxis morphine [Morphine] Allergy (Intermediate, Verified 08/23/17 13:46) Generalized rash Penicillins Allergy (Intermediate, Verified 08/23/17 13:46) Generalized rash propoxyphene HCl [From Darvon] Allergy (Intermediate, Verified 08/23/17 13:46) Generalized rash sertraline [Sertraline] Allergy (Intermediate, Verified 08/23/17 13:46) Generalized rash [id number] Reductase Inhibitor Allergy (Intermediate, Verified 08/23/17 13: 46) Generalized rash Review of Systems All systems: as per PMH Constitutional: PRESENT: as per HPI Eyes: PRESENT: as per HPI Ears: PRESENT: as per HPI Nose, Mouth, and Throat: PRESENT: as per HPI Breasts: PRESENT: as per HPI Cardiovascular: PRESENT: chest pain, dyspnea on exertion Respiratory: PRESENT: dyspnea Gastrointestinal: PRESENT: nausea Genitourinary: PRESENT: as per HPI Neurological: PRESENT: as per HPI Psychiatric: PRESENT: as per HPI Endocrine: PRESENT: as per HPI Hematologic/Lymphatic: PRESENT: as per HPI Physical Exam Vital Signs: Temp Pulse Resp BP Pulse Ox 97.6 F 13 123/75 95 10/20/17 08:37 10/20/17 10:01 10/20/17 10:01 10/20/17 10:01 Intake & Output 10/19/17 10/20/17 10/21/17 06:59 06:59 06:59 Weight 75.6 kg General appearance: PRESENT: no acute distress, cooperative, well-developed, well-nourished Head exam: PRESENT: atraumatic, normocephalic Eye exam: PRESENT: EOMI, PERRLA Ear exam: PRESENT: normal external ear exam, TM's normal bilaterally Mouth exam: PRESENT: neck supple, tongue midline Respiratory exam: PRESENT: clear to auscultation jonnie, symmetrical Cardiovascular exam: PRESENT: +S1, +S2 Pulses: PRESENT: +2 pedal pulses bilateral GI/Abdominal exam: PRESENT: normal bowel sounds, soft Rectal exam: PRESENT: deferred Extremities exam: PRESENT: full ROM Musculoskeletal exam: PRESENT: ambulatory Neurological exam: PRESENT: alert, awake, oriented to person, oriented to place , oriented to time Psychiatric exam: PRESENT: normal mood Results Laboratory Results: 10/20/17 06:59 10/20/17 06:59 10/20/17 10/20/17 06:59 06:59 WBC 8.9 RBC 4.56 Hgb 13.7 Hct 38.9 MCV 85 MCH 30.0 MCHC 35.1 RDW 14.4 H Plt Count 227 Seg Neutrophils % 42.5 Lymphocytes % 42.9 Monocytes % 8.8 Eosinophils % 4.4 Basophils % 1.4 Absolute Neutrophils 3.8 Absolute Lymphocytes 3.8 Absolute Monocytes 0.8 Absolute Eosinophils 0.4 Absolute Basophils 0.1 Sodium 147.3 H Potassium 2.8 L* Chloride 104 Carbon Dioxide 33 H Anion Gap 10 BUN 23 H Creatinine 1.23 Est GFR ( Amer) 53 L Est GFR (Non-Af Amer) 44 L Glucose 99 Calcium 11.7 H Total Bilirubin 0.3 AST 19 ALT 27 Alkaline Phosphatase 119 Total Protein 6.5 Albumin 3.5 Triglycerides 279 H Cholesterol 246.04 H LDL Cholesterol Direct 160 H VLDL Cholesterol 55.8 H HDL Cholesterol 39 L 10/20/17 10/20/17 10/20/17 00:05 00:05 06:59 Creatine Kinase 59 CK-MB (CK-2) 2.06 1.59 Troponin I 0.064 0.072 10/20/17 06:59 Creatine Kinase 46 CK-MB (CK-2) Troponin I Impressions: Chest X-Ray 10/19/17 19:50 IMPRESSION: NO ACUTE RADIOGRAPHIC FINDING IN THE CHEST. Assessment & Plan - Diagnosis (1) Chest pain, rule out acute myocardial infarction Is this a current diagnosis for this admission?: Yes Plan: WE will ct pt on oxygen by N/C 2 L/Min to keep saturation> 92%; NTG 0.4 mg S/L q5 minutes prn x3; Morphine 2 mg q4h IV prn; Zofran 4 mg q6h IV prn; Aspirin 325 mg qd po; f/u cardiology consult with Dr Blancas. (2) Hypercalcemia Is this a current diagnosis for this admission?: Yes Plan: Ct with cautious IV fluids hydration at 50 cc/hour due to hx of CHF. Ct with Lasix 80 mg BID po; monitor chemistries daily. (3) Hypokalemia Is this a current diagnosis for this admission?: Yes Plan: Pt was given KCL 20 MEQ IVx2 doses; ct with KCL 20 MEQ qd po; monitor chemistries daily. (4) Hyperglycemia due to type 2 diabetes mellitus Qualifiers: Diabetes mellitus termite renewal inspector insulin use: unspecified halfway insulin use status Qualified Code(s): E11.65 - Type 2 diabetes mellitus with hyperglycemia Is this a current diagnosis for this admission?: Yes Plan: Ct with Novolog insulin 15 iu qac subcut; slidding scale with novolog insulin as per [facility] protocol with accucheck qac, qhs. Lantus insulin 40 iu qhs subcut; 1800 calorie ADA diet. F/u HBA1c. (5) Essential hypertension, benign Is this a current diagnosis for this admission?: Yes Plan: Ct with HAmlodipine 10 mg qd po; Hydralazine 100 mg TID po; Coreg ER 40 mg qd po ; Isosorbide mononitrate 60 mg qd po; 2 g sodium diet. (6) Hypercholesterolemia Is this a current diagnosis for this admission?: Yes Plan: Ct with Zetia 10 mg qd po; Welchol 1875 mg BID PO; 200 mg cholesterol diet. (7) Coronary artery disease Qualifiers: Associated angina: with unspecified angina Is this a current diagnosis for this admission?: Yes Plan: Ct with Aspirin 325 mg qd po; Plavix 75 mg qd; cardiac diet. (8) Chronic systolic (congestive) heart failure Is this a current diagnosis for this admission?: Yes Plan: Ct with Lasix 80 mg BID PO; Isosorbide mononitrate 60 mg qd po; daily weight, strict input/output chart; monitor chemistries daily. (9) Diabetic neuropathy Is this a current diagnosis for this admission?: Yes Plan: Ct with Lyrica 150 mg BID po. (10) Obstructive sleep apnea Is this a current diagnosis for this admission?: Yes Plan: Ct with CPAP. (11) CKD (chronic kidney disease) stage 3, GFR 30-59 ml/min Is this a current diagnosis for this admission?: Yes Plan: Ct with strict input/output chart; daily weight; avoid nephrotoxics; monitor chemistries daily. (12) Vitamin D deficiency Is this a current diagnosis for this admission?: Yes Plan: Ct with Vitamin D 59133vm weekly PO. (13) Constipation Qualifiers: Constipation type: unspecified constipation type Qualified Code(s): K59.00 - Constipation, unspecified Is this a current diagnosis for this admission?: Yes Plan: Ct with Amitiza8 mcg BID po; Colace 100 mg qd po prn. (14) DVT prophylaxis Is this a current diagnosis for this admission?: Yes Plan: Ct with Lovenox 40 mg qd subcut; SCD. - Time Time Spent: 30 to 50 Minutes Medications reviewed and adjusted accordingly: Yes Anticipated discharge: Home Within: within 48 hours
[2017-10-20 12:42] LABS: CREATINE KINASE MB 1.85 ng/mL (<4.55)
[2017-10-20] MEDS ORDERED: ENOXAPARIN SODIUM INJ 40 MG/0.4 ML DISP.SYRIN SUBCUT ONE (13:00)
[2017-10-20 13:13] LABS: TROPONIN I 0.051 ng/mL
[2017-10-20] MEDS ORDERED: METOPROLOL TARTRATE PF/INJ 5 MG/5 ML SDV IV ONE ×2 (16:17→16:32)
[2017-10-20] MEDS ORDERED: ALPRAZOLAM 0.5 MG TABLET PO PRN (16:28)
[2017-10-20] MEDS ORDERED: COLESEVELAM HCL 625 MG TABLET PO SCH (17:00)
--- NOTE | 2017-10-20 17:00 | PDOC TRANSFER SUMMARY ---
General Admission Date/PCP: 10/19/17 22:22 LAST SELBY Admission Date: 10/19/17 Transfer Date: 10/20/17 Accepting Facility: [facility] Accepting Physician: Dr Cline Resuscitation Status: Full Code - Transfer Diagnosis (1) Chest pain, rule out acute myocardial infarction Is this a current diagnosis for this admission?: Yes (2) Hypercalcemia Is this a current diagnosis for this admission?: Yes (3) Hypokalemia Is this a current diagnosis for this admission?: Yes (4) Hyperglycemia due to type 2 diabetes mellitus Is this a current diagnosis for this admission?: Yes (5) Essential hypertension, benign Is this a current diagnosis for this admission?: Yes (6) Hypercholesterolemia Is this a current diagnosis for this admission?: Yes (7) Coronary artery disease Is this a current diagnosis for this admission?: Yes (8) Chronic systolic (congestive) heart failure Is this a current diagnosis for this admission?: Yes (9) Diabetic neuropathy Is this a current diagnosis for this admission?: Yes (10) Obstructive sleep apnea Is this a current diagnosis for this admission?: Yes (11) CKD (chronic kidney disease) stage 3, GFR 30-59 ml/min Is this a current diagnosis for this admission?: Yes (12) Vitamin D deficiency Is this a current diagnosis for this admission?: Yes (13) Constipation Is this a current diagnosis for this admission?: Yes (14) DVT prophylaxis Is this a current diagnosis for this admission?: Yes - Transfer Medications Home Medications: Aspirin [Aspirin 325 mg Tablet] 325 mg PO DAILY 04/07/12 Pregabalin [Lyrica] 150 mg PO BID 08/09/12 Clopidogrel Bisulfate [Plavix 75 mg Tablet] 75 mg PO DAILY 02/13/15 Ergocalciferol (Vitamin D2) [Vitamin D2] 50,000 unit PO MOTH@1000 02/13/15 Isosorbide Mononitrate [Isosorbide Mononitrate ER] 60 mg PO DAILY 02/13/15 Lubiprostone [Amitiza 8 Mcg Capsule] 8 mcg PO BID 02/13/15 Carvedilol Phosphate [Coreg CR 40 mg Ext. Release Capsule] 40 mg PO DAILY Furosemide [Lasix 40 mg Tablet] 80 mg PO BID 10/19/17 Insulin Aspart [Novolog Flexpen] 15 unit SUBCUT AC 10/19/17 Insulin Glargine,Hum.rec.anlog [Lantus Insulin 100 Unit/mL] 40 unit SUBCUT QHS 10/19/17 Oxycodone HCl/Acetaminophen [Percocet 10-325 Mg Tablet] 1 each PO Q8H PRN Hydralazine HCl 100 mg PO Q8 10/20/17 Ondansetron HCl [Zofran 4 mg Tablet] 4 mg PO BIDP PRN 10/20/17 Ranolazine [Ranexa 500 mg Tab.sr] 500 mg PO Q12 10/20/17 Transfer Medications: Current Medications Acetaminophen (Tylenol 325 Mg Tablet) 650 mg PO Q4HP PRN PRN Reason: PAIN/HEADACHE Stop: 11/19/17 00:27 Alprazolam (Xanax 0.5 Mg Tablet) 0.5 mg PO Q8HP PRN PRN Reason: ANXIETY Stop: 10/27/17 16:27 Amlodipine Besylate (Norvasc 10 Mg Tablet) 10 mg PO DAILY [facility] Stop: 11/19/17 09:59 Aspirin (Aspirin 325 Mg Tablet) 325 mg PO DAILY [facility] Stop: 11/19/17 09:59 Last Admin: 10/20/17 09:43 Dose: 325 mg Atorvastatin Calcium (Lipitor 20 Mg Tablet) 20 mg PO QHS [facility] Stop: 11/19/17 21:59 Carvedilol (Coreg 12.5 Mg Tablet) 12.5 mg PO Q12 [facility] Stop: 11/19/17 09:59 Clopidogrel Bisulfate (Plavix 75 Mg Tablet) 75 mg PO DAILY [facility] Stop: 11/19/17 09:59 Last Admin: 10/20/17 09:44 Dose: 75 mg Colesevelam HCl (Welchol 625 Mg Tablet) 1,875 mg PO BIDBS [facility] Stop: 11/19/17 16:59 Docusate Sodium (Colace 100 Mg Capsule) 100 mg PO DAILYP PRN PRN Reason: CONSTIPATION Stop: 11/19/17 00:28 Ezetimibe (Zetia 10 Mg Tablet) 10 mg PO QPM [facility] Stop: 11/19/17 17:59 Enoxaparin Sodium (Lovenox Inj 80 Mg/0.8 Ml Disp.Syrin) 75 mg SUBCUT Q12 [facility] Stop: 11/19/17 21:59 Ergocalciferol (Drisdol 50,000 Unit (1.25mg) Capsule) 50,000 unit PO Q7D [facility] Stop: 11/20/17 09:59 Ferrous Sulfate (Feosol 325 Mg Tablet) 325 mg PO DAILY [facility] Stop: 11/19/17 09:59 Last Admin: 10/20/17 09:44 Dose: 325 mg Furosemide (Lasix 40 Mg Tablet) 80 mg PO BID [facility] Stop: 11/19/17 09:59 Last Admin: 10/20/17 09:44 Dose: 80 mg Hydralazine HCl (Apresoline 50 Mg Tablet) 100 mg PO Q8 [facility] Stop: 11/19/17 05:59 Last Admin: 10/20/17 16:07 Dose: 100 mg Sodium Chloride (Nacl 0.9% 1000 Ml Iv Soln) 1,000 mls @ 50 mls/hr IV CONTINUOUS PRN PRN Reason: THIS MED IS NOT "PRN" Stop: 11/19/17 00:30 Last Admin: 10/19/17 22:45 Dose: 1,000 ml Influenza Virus Vaccine Quadrival (Fluzone Adlt Quad [id number] Vac 0.5 Ml Syr) 0.5 ml IM .DISCHARGE PRN PRN Reason: THIS MED IS NOT "PRN" Stop: 11/19/17 08:44 Insulin Glargine (Lantus Insulin Inj 300 Unit/3 Ml Pen) 40 unit SUBCUT QHS [facility] Stop: 11/19/17 21:59 Insulin Human Lispro (Humalog Insulin 100 Unit/1 Ml 3 Ml Vial) 15 unit SUBCUT AC [facility] Stop: 11/19/17 07:59 Last Admin: 10/20/17 11:44 Dose: 15 unit Isosorbide Mononitrate (Imdur 30 Mg Tablet.Er) 60 mg PO DAILY [facility] Stop: 11/19/17 09:59 Isosorbide Mononitrate (Imdur 30 Mg Tablet.Er) 30 mg PO QHS [facility] Stop: 11/19/17 21:59 Lansoprazole (Prevacid 30 Mg Odt Tablet) 30 mg PO BID@0600,1700 [facility] Stop: 11/19/17 16:59 Last Admin: 10/20/17 16:07 Dose: 30 mg Lubiprostone (Amitiza 8 Mcg Capsule) 8 mcg PO BID [facility] Stop: 11/19/17 09:59 Last Admin: 10/20/17 09:45 Dose: 8 mcg Metoprolol Tartrate (Lopressor Inj/Pf 5 Mg/5 Ml Sdv) 5 mg IV Q5M [facility] Stop: 10/20/17 17:41 Morphine Sulfate (Morphine 10 Mg/Ml Inj) 2 mg IV Q6HP PRN PRN Reason: PAIN Stop: 10/27/17 16:26 Ondansetron HCl (Zofran Inj/Pf 4 Mg/2 Ml Sdv) 4 mg IV Q6HP PRN PRN Reason: NAUSEA Stop: 11/19/17 00:30 Oxycodone HCl (Oxy-Ir 5 Mg Tablet) 5 mg PO Q8HP PRN PRN Reason: PAIN Stop: 10/27/17 00:26 Oxycodone/Acetaminophen (Percocet 5-325 Mg Tablet) 1 tab PO Q8HP PRN PRN Reason: PAIN Stop: 10/27/17 00:25 Potassium Chloride (Klor-Con 10 Meq Tablet.Sa) 20 meq PO DAILY@1100 [facility] Stop: 11/19/17 10:59 Last Admin: 10/20/17 11:12 Dose: 20 meq Pregabalin (Lyrica 75 Mg Capsule) 150 mg PO BID [facility] Stop: 11/19/17 09:59 Last Admin: 10/20/17 09:45 Dose: 150 mg Ranolazine (Ranexa 500 Mg Tab.Sr) 500 mg PO Q12 [facility] Stop: 11/19/17 21:59 Zolpidem Tartrate (Ambien 5 Mg Tablet) 5 mg PO HSP PRN PRN Reason: INSOMNIA Stop: 10/27/17 00:28 - Allergies Allergies/Adverse Reactions: cyclobenzaprine [From Flexeril] Allergy (Severe, Verified 08/23/17 13:46) rash propoxyphene Allergy (Severe, Verified 08/23/17 13:46) Hives sumatriptan [From Imitrex] Allergy (Severe, Verified 08/23/17 13:46) Anaphylaxis morphine [Morphine] Allergy (Intermediate, Verified 08/23/17 13:46) Generalized rash Penicillins Allergy (Intermediate, Verified 08/23/17 13:46) Generalized rash propoxyphene HCl [From Darvon] Allergy (Intermediate, Verified 08/23/17 13:46) Generalized rash sertraline [Sertraline] Allergy (Intermediate, Verified 08/23/17 13:46) Generalized rash Rtmgtjt-Njw-Wnh Reductase Inhibitor Allergy (Intermediate, Verified 08/23/17 13: 46) Generalized rash Hospital Course Hospital Course: 66 year old woman with extensive cardiac history, with hx of CAD s.p stentsx7/ CHF-systolic dysfunction/DmD2/HTN/hypelipidema/TRACY on CPAP, who presented to ER with crushing, retrosternal chest pain that initially was relieved with NTG, but the chest pain is now worse and pt cannot get Morphine due to history of allergy.Her troponin went up to 0.07, but is now down to 0.05. Pt will benefit fro urgent cardiac cath. and we do not have such facility in our hospital. We appreciate your accepting this pt for higher level of care. Physical Exam Vital Signs: Temp Pulse Resp BP Pulse Ox 97.2 F 59 L 17 111/62 96 10/20/17 13:40 10/20/17 13:40 10/20/17 13:40 10/20/17 13:40 10/20/17 13:40 Intake & Output 10/19/17 10/20/17 10/21/17 06:59 06:59 06:59 Weight 75.6 kg General appearance: PRESENT: cooperative, mild distress, well-developed, well- nourished Head exam: PRESENT: atraumatic, normocephalic Eye exam: PRESENT: EOMI, PERRLA Respiratory exam: PRESENT: decreased breath sounds, symmetrical Cardiovascular exam: PRESENT: +S1 Pulses: PRESENT: +2 pedal pulses bilateral GI/Abdominal exam: PRESENT: normal bowel sounds, soft Rectal exam: PRESENT: deferred Musculoskeletal exam: PRESENT: full ROM Neurological exam: PRESENT: alert, awake, oriented to person, oriented to place , oriented to time Psychiatric exam: PRESENT: normal mood Results Laboratory Results: 10/20/17 06:59 10/20/17 12:11 10/20/17 10/20/17 10/20/17 06:59 06:59 12:11 WBC 8.9 RBC 4.56 Hgb 13.7 Hct 38.9 MCV 85 MCH 30.0 MCHC 35.1 RDW 14.4 H Plt Count 227 Seg Neutrophils % 42.5 Lymphocytes % 42.9 Monocytes % 8.8 Eosinophils % 4.4 Basophils % 1.4 Absolute Neutrophils 3.8 Absolute Lymphocytes 3.8 Absolute Monocytes 0.8 Absolute Eosinophils 0.4 Absolute Basophils 0.1 Sodium 147.3 H Potassium 2.8 L* Chloride 104 Carbon Dioxide 33 H Anion Gap 10 BUN 23 H Creatinine 1.23 1.21 Est GFR ( Amer) 53 L 54 L Est GFR (Non-Af Amer) 44 L 45 L Glucose 99 Calcium 11.7 H Total Bilirubin 0.3 AST 19 ALT 27 Alkaline Phosphatase 119 Total Protein 6.5 Albumin 3.5 Triglycerides 279 H Cholesterol 246.04 H LDL Cholesterol Direct 160 H VLDL Cholesterol 55.8 H HDL Cholesterol 39 L 10/20/17 10/20/17 10/20/17 00:05 00:05 06:59 Creatine Kinase 59 CK-MB (CK-2) 2.06 1.59 Troponin I 0.064 0.072 10/20/17 10/20/17 10/20/17 06:59 12:11 12:11 Creatine Kinase 46 52 CK-MB (CK-2) 1.85 Troponin I 0.051 Impressions: Chest X-Ray 10/19/17 19:50 IMPRESSION: NO ACUTE RADIOGRAPHIC FINDING IN THE CHEST.
[2017-10-20] MEDS ORDERED: METOPROLOL TARTRATE PF/INJ 5 MG/5 ML SDV IV SCH (17:30)
[2017-10-20] MEDS ORDERED: EZETIMIBE 10 MG TABLET PO SCH (18:00)
[2017-10-20] MEDS ORDERED: LABETALOL HCL INJ 20 MG/4 ML DISP.SYRIN IV ONE ×2 (18:14→20:30)
[2017-10-20] MEDS: MORPHINE SULFATE 10 MG/ML INJ IV PRN ×2 (18:18→21:39)
--- NOTE | 2017-10-20 18:35 | EKG REPORT ---
SEVERITY:- BORDERLINE ECG - SINUS RHYTHM LEFT AXIS DEVIATION BORDERLINE T ABNORMALITIES, ANT-LAT LEADS BORDERLINE PROLONGED QT INTERVAL : Confirmed by: Efren Matson MD 20-Oct-2017 18:35:35
[2017-10-20] MEDS ORDERED: LABETALOL HCL INJ 20 MG/4 ML DISP.SYRIN IV PRN (19:58)
--- NOTE | 2017-10-20 20:26 | PDOC CONSULTATION ---
Consultation Consult Date: 10/20/17 Attending physician:: LAST SELBY Consult reason:: Chest pain History of Present Illness Admission Date/PCP: 10/19/17 22:22 LAST SEBLY Patient complains of: Chest pain History of Present Illness: JHONATAN JOYNER is a 66 year old female with history of DM2/HTN/Hyperlipidemia/CAD s.p stentsx7/CHF- systolic dysfunction/CKD stage 3/DM neuropathy/Vitamin D def./ TRACY on CPAP/Osteoarthritis/Constipation, who started having chest pain, retrosternal, 03/20, radiating to left shoulder and neck, that initially relieved with NTG spray, but started getting worse as the day progressed and not responding to NTG spray any longer, associated with dyspnea, nausea and diaphoresis. She was brought to ER by EMS. Her calcium was 12.4 and potassium later decreased from 3.5 to 2.8. She was admitted for 23-48 hours observation at Telemetry floor. Patient was initially seen in the emergency room ED room 13. This was around 10 AM. At that time patient noted to be chest pain-free. This history was confirmed and reviewed. Subsequently patient was seen again on the fifth floor. Orders were entered in the computer. Subsequently patient started having chest pains. Medications were optimized. Patient subsequently moved to the unit where she was seen again. Assisted Dr. Selby in transferring patient to tertiary care having talked with the accepting patrol captain Dr. Cline at [facility]. Prior to that made calls to [facility] and also [facility]. However they did not have bed. Patient's medications were optimized. Orders were written and verbal orders given as well. Past Medical History Cardiac Medical History: Reports: Congestive Heart Failure, Coronary Artery Disease - cardiac stents x 7, Myocardial Infarction - 2012, Hyperlipidema, Hypertension - on meds Pulmonary Medical History: Reports: Chronic Obstructive Pulmonary Disease (COPD ) - no meds Denies: Asthma, Bronchitis, Pneumonia, Tuberculosis Neurological Medical History: Denies: Seizures Endocrine Medical History: Reports: Diabetes Mellitus Type 1, Diabetes Mellitus Type 2 Musculoskeltal Medical History: Reports: Arthritis - RA Psychiatric Medical History: Denies: Depression Hematology: Reports: Anemia Past Surgical History Past Surgical History: Reports: Cardiac Catheterization - 7stents Denies: Hysterectomy, Pacemaker Social History Information Source: Patient Smoking Status: Never Smoker Frequency of Alcohol Use: None Hx Recreational Drug Use: No Drugs: None Hx Prescription Drug Abuse: No - Advance Directive Resuscitation Status: Full Code Surrogate healthcare decision maker:: Patient's is the surrogate decision-maker Family History Family History: CAD Parental Family History Reviewed: Yes Children Family History Reviewed: Yes Sibling(s) Family History Reviewed.: Yes Medication/Allergy Home Medications: Aspirin [Aspirin 325 mg Tablet] 325 mg PO DAILY 04/07/12 Pregabalin [Lyrica] 150 mg PO BID 08/09/12 Clopidogrel Bisulfate [Plavix 75 mg Tablet] 75 mg PO DAILY 02/13/15 Ergocalciferol (Vitamin D2) [Vitamin D2] 50,000 unit PO MOTH@1000 02/13/15 Isosorbide Mononitrate [Isosorbide Mononitrate ER] 60 mg PO DAILY 02/13/15 Lubiprostone [Amitiza 8 Mcg Capsule] 8 mcg PO BID 02/13/15 Carvedilol Phosphate [Coreg CR 40 mg Ext. Release Capsule] 40 mg PO DAILY Amlodipine Besylate [Norvasc 10 mg Tablet] 10 mg PO DAILY #30 tablet 11/22/15 Furosemide [Lasix 40 mg Tablet] 80 mg PO BID 10/19/17 Insulin Aspart [Novolog Flexpen] 15 unit SUBCUT AC 10/19/17 Insulin Glargine,Hum.rec.anlog [Lantus Insulin 100 Unit/mL] 40 unit SUBCUT QHS 10/19/17 Oxycodone HCl/Acetaminophen [Percocet 10-325 Mg Tablet] 1 each PO Q8H PRN Hydralazine HCl 100 mg PO Q8 10/20/17 Ondansetron HCl [Zofran 4 mg Tablet] 4 mg PO BIDP PRN 10/20/17 Ranolazine [Ranexa 500 mg Tab.sr] 500 mg PO Q12 10/20/17 Allergies/Adverse Reactions: cyclobenzaprine [From Flexeril] Allergy (Severe, Verified 08/23/17 13:46) rash propoxyphene Allergy (Severe, Verified 08/23/17 13:46) Hives sumatriptan [From Imitrex] Allergy (Severe, Verified 08/23/17 13:46) Anaphylaxis morphine [Morphine] Allergy (Intermediate, Verified 11/13/17 13:46) Generalized rash Penicillins Allergy (Intermediate, Verified 08/23/17 13:46) Generalized rash propoxyphene HCl [From Darvon] Allergy (Intermediate, Verified 08/23/17 13:46) Generalized rash sertraline [Sertraline] Allergy (Intermediate, Verified 08/23/17 13:46) Generalized rash Ugjixjj-Vjs-Aby Reductase Inhibitor Allergy (Intermediate, Verified 08/23/17 13: 46) Generalized rash Review of Systems Review of Systems: Please see history of present illness and past medical history as wall. Constitutional: No fever or chills reported. Head : No recent chronic headaches, recent head injury. Eyes: No recent eye pain, diplopia, redness, discharge, acute visual changes. Ears: No recent chronic ear pain, acute hearing loss, ear discharge. Oral cavity: No recent ulcerations, bleeding, oral cavity discomfort. Neck: No recent acute neck pain reported. Hematologic: No recent easy bruising or bleeding or hematologic malignancy reported. Lymphatic: No recent lymphatic malignancy, chronic lymphadenopathy reported yet Cardiovascular system review: See history of present illness. Respiratory system review: No recent chronic cough, hemoptysis, blood clots in the lungs reported. Shortness of breath on exertion Gastrointestinal system review: Negative for any recent acute or chronic abdominal pain, hematemesis, melena, recent change in bowel habits. Genitourinary system review: No recent acute or chronic hematuria, flank pain, UTI etc. reported. Skin system review: Negative for any recent abnormal bruising, no rash, no pruritus reported. Neurologic: No prior history of strokes, mini strokes, seizure disorder. Psychologic: No history of major psychosis or major depression reported. Musculoskeletal: Minor aches and pains reported. No acute joint swelling reported. Endocrine: No recent polyuria, polydipsia, recent heat or cold intolerance. Physical Exam Vital Signs: Temp Pulse Resp BP Pulse Ox 98.1 F 61 15 138/59 H 98 10/20/17 18:00 10/20/17 19:00 10/20/17 18:00 10/20/17 18:00 10/20/17 18:00 Intake & Output 10/19/17 10/20/17 10/21/17 06:59 06:59 06:59 Intake Total 20 Output Total 50 Balance -30 Weight 75.6 kg Exam: GENERAL: well-nourished and in no acute distress. Alert and oriented x3 HEAD: Atraumatic, normocephalic. EYES: Pupils equal round and reactive to light, extraocular movements intact, sclera anicteric, conjunctiva are normal. ENT: TMs normal, nares patent, oropharynx clear without exudates. Moist mucous membranes. No oral ulcerations or bleeding gums noted NECK: supple without lymphadenopathy. Trachea is central. No cervical or axillary lymphadenopathy noted. Carotids are 2+, JVD WNL LUNGS: Respiration seems nonlabored, no significant accessory muscle action noted. Breath sounds clear to auscultation bilaterally and equal noted. No wheezes rales or rhonchi noted. No significant dullness noted on percussion. CHEST: Palpation of the chest wall shows no significant chest wall tenderness. No other significant abnormalities noted. HEART: Olive [employer], No PSH, 1/6 YANG aortic area, 1/6 richard systolic murmur mitral area, no rubs, no gallops. ABDOMEN: Soft, no significant tenderness appreciated, normoactive bowel sounds. No guarding, no rebound. No rigidity noted . No masses appreciated. EXTREMITIES: Pedal pulses are 1-2+, no calf tenderness noted. No clubbing or cyanosis.trace to 1+ pedal edema noted NEUROLOGICAL: Focused neurological exam showed no significant neurologic deficit. Normal speech, no focal weakness appreciated. PSYCH: Normal mood, normal affect. Judgment and insight within normal limits. SKIN: No significant ecchymosis, rash, ulcerations or signs of pruritus noted. MUSCULOSKELETAL EXAM: No significant joint swelling noted. Results Laboratory Results: 10/20/17 06:59 10/20/17 12:11 10/20/17 10/20/17 10/20/17 06:59 06:59 12:11 WBC 8.9 RBC 4.56 Hgb 13.7 Hct 38.9 MCV 85 MCH 30.0 MCHC 35.1 RDW 14.4 H Plt Count 227 Seg Neutrophils % 42.5 Lymphocytes % 42.9 Monocytes % 8.8 Eosinophils % 4.4 Basophils % 1.4 Absolute Neutrophils 3.8 Absolute Lymphocytes 3.8 Absolute Monocytes 0.8 Absolute Eosinophils 0.4 Absolute Basophils 0.1 Sodium 147.3 H Potassium 2.8 L* Chloride 104 Carbon Dioxide 33 H Anion Gap 10 BUN 23 H Creatinine 1.23 1.21 Est GFR ( Amer) 53 L 54 L Est GFR (Non-Af Amer) 44 L 45 L Glucose 99 Calcium 11.7 H Total Bilirubin 0.3 AST 19 ALT 27 Alkaline Phosphatase 119 Total Protein 6.5 Albumin 3.5 Triglycerides 279 H Cholesterol 246.04 H LDL Cholesterol Direct 160 H VLDL Cholesterol 55.8 H HDL Cholesterol 39 L 10/20/17 10/20/17 10/20/17 00:05 00:05 06:59 Creatine Kinase 59 CK-MB (CK-2) 2.06 1.59 Troponin I 0.064 0.072 10/20/17 10/20/17 10/20/17 06:59 12:11 12:11 Creatine Kinase 46 52 CK-MB (CK-2) 1.85 Troponin I 0.051 EKG Comments: Sinus rhythm, minimal ST segment changes inferiorly lead, some nonspecific ST-T changes noted. Multiple EKGs reviewed. Impressions: Chest X-Ray 10/19/17 19:50 IMPRESSION: NO ACUTE RADIOGRAPHIC FINDING IN THE CHEST. Assessment & Plan - Diagnosis (1) Acute coronary syndrome Is this a current diagnosis for this admission?: Yes (2) Hyperlipidemia Qualifiers: Hyperlipidemia type: unspecified Qualified Code(s): E78.5 - Hyperlipidemia , unspecified Is this a current diagnosis for this admission?: Yes (3) Coronary artery disease Qualifiers: Associated angina: with unspecified angina Is this a current diagnosis for this admission?: Yes (4) Essential hypertension, benign Is this a current diagnosis for this admission?: Yes (5) Obstructive sleep apnea Is this a current diagnosis for this admission?: Yes - Notes Notes: Patient was seen multiple times. Clinical presentation suggest acute coronary syndrome. 2D echo was ordered but not performed. Patient being treated with Lovenox, Plavix, aspirin, beta blockers, statins. Have also added Ranexa. Patient also noted to have intermittently high blood pressure. This could be related to angina episodes however patient also noted to be somewhat anxious therefore Xanax was prescribed. Patient was subsequently moved to the unit. Patient finally brought accepted for heart catheterization and subsequent management at [facility]. Patient was seen multiple times with total time exceeding 1 hour. Please see orders for details. - Time Time Spent: 50 to 70 Minutes - CODE STATUS was discussed, patient remains full code. Surrogate decision-maker . Multiple medical problems were addressed. More than 50% of the time spent coordinating care, discussing management plans with involved caregivers. Management plans discussed with involved personnels. Medical decision making was of moderate to high complexity , patient's has multiple comorbidities. Medications reviewed and adjusted accordingly: Yes
--- NOTE | 2017-10-20 21:51 | RADIOLOGY REPORT (SQ) ---
EXAM DESCRIPTION: CTA CHEST COMPLETED DATE/TIME: 10/20/2017 9:25 pm REASON FOR STUDY: SOB, EVAL PE R07.9 CHEST PAIN, UNSPECIFIED COMPARISON: 04/07/2012. TECHNIQUE: CT scan of the chest performed using helical scanning technique with dynamic intravenous contrast injection. Images reviewed with lung, soft tissue and bone windows. Reconstructed coronal and sagittal MPR images reviewed. Additional 3 dimensional post-processing performed to develop Maximal Intensity Projection images (NM P). All images stored on PACS. All CT scanners at this facility use dose modulation, iterative reconstruction, and/or weight based d osing when appropriate to reduce radiation dose to as low as reasonably achievable (ALARA). [facility]: Dose Right [facility]: CareDose [facility]: Dose Right [facility]: Teradose 4D [facility]: Adcrowd retargeting CONTRAST TYPE AND DOSE: contrast/concentration: Isovue 370.00 mg/ml; Total Contrast Delivered: 70.0 ml; Total Saline Delivered: 70.0 ml Contrast bolus adequate for pulmonary arteries and aorta. RENAL FUNCTION: BUN 23 creatinine 1.21. RADIATION DOSE: CT Rad equipment meets quality standard of care and radiation dose reduction techniq ues were employed. CTDIvol: 18.3 - 19.8 mGy. DLP: 650 mGy-cm. . LIMITATIONS: None. FINDINGS: LUNGS AND PLEURA: No masses, infiltrates, pneumothorax. No pleural effusions, calcificati ons. AORTA AND GREAT VESSELS: No aneurysm. Contrast bolus not optimized for the aorta. HEART: No pericardial effusion. No significant coronary artery calcifications. PULMONARY ARTERIES: No emboli visualized in the main pulmonary arteries or the segmental branches. HILAR AND MEDIASTINAL STRUCTURES: No identified masses or abnormal nodes. HARDWARE: None in the chest. UPPER ABDOMEN: No significant findings. Limited exam. THYROID AND OTHER SOFT TISSUES: No masses. No adenopathy. BONES: No acute or significant finding. 3D MIPS: Confirm above findings. OTHER: No other significant finding. IMPRESSION: NORMAL CTA OF THE CHEST. NO PULMONARY EMBOLI. COMMENT: Quality ID # [id number]: Final reports with documentation of one or more dose reduction techniques (e.g., Automated exposure control, adjustment of the mA and/or kV according to patient size, use of iterative reconstruction technique) TECHNICAL DOCUMENTATION: JOB ID: [id number]- All Rights Reserved
[2017-10-20] MEDS ORDERED: ENOXAPARIN SODIUM INJ 80 MG/0.8 ML DISP.SYRIN SUBCUT SCH (22:00)
[2017-10-20] MEDS ORDERED: RANOLAZINE 500 MG TAB.SR.12H PO SCH (22:00)
[2017-10-20] MEDS ORDERED: ATORVASTATIN CALCIUM 20 MG TABLET PO SCH (22:00)
[2017-10-20] MEDS ORDERED: INSULIN GLARGINE,HUM.REC.ANLOG 300 UNIT/3 ML INSULN.PEN SUBCUT SCH (22:00)
[2017-10-20 22:49] VITALS: BP 127/65
[2017-10-21] MEDS ORDERED: ENOXAPARIN SODIUM INJ 40 MG/0.4 ML DISP.SYRIN SUBCUT SCH (10:00)
[2017-10-21] MEDS ORDERED: ISOSORBIDE MONONITRATE 30 MG TAB.ER.24H PO SCH (10:00)
[2017-10-21] MEDS ORDERED: AMLODIPINE BESYLATE 10 MG TABLET PO SCH (10:00)
[2017-10-21] MEDS ORDERED: ERGOCALCIFEROL (VITAMIN D2) 50000 UNIT (1.25 MG) CAPSULE PO SCH (10:00)
--- NOTE | 2017-10-22 19:22 | Physician Advisory Note ---
Physician Advisor ProgressNote .: Pursuant to the plan for [facility], I have reviewed the medical record for this patient. Physician Advisor Statement: Nice documentation of chronic systolic CHF. Please clarify in documentation: 1. Most likely cause of CP - if transferring for urgent cath, it is quite likely attending was concerned for "possible acute ischemic heart disease", "Ac Coronary Syndrome", or "possible acute NSTEMI of __ wall" - Stating "r/o WI" is not helpful for coding purposes, as it can be assumed by a payer to mean that WI was ruled out. Thanks! CK
[2017-10-25] MEDS ORDERED: ERGOCALCIFEROL (VITAMIN D2) 50000 UNIT (1.25 MG) CAPSULE PO SCH (10:00)
== END 2017-10-20 22:45 | disposition short-term general hospital (02) ==
LOC: ER 19:43 → EH 22:22 → INTOOBSV 22:22 → 5 10-20 12:53 → ICU 10-20 18:03
PROVIDERS: ADMIT Internal Medicine; ATTEND Internal Medicine
DX: R07.2 Precordial pain (principal); E83.52 Hypercalcemia; E87.6 Hypokalemia; E78.00 Pure hypercholesterolemia, unspecified; E11.65 Type 2 diabetes mellitus with hyperglycemia; E11.40 Type 2 diabetes mellitus with diabetic neuropathy, unspecified; E11.22 Type 2 diabetes mellitus with diabetic chronic kidney disease; I13.0 Hypertensive heart and chronic kidney disease with heart failure and stage 1 through stage 4 chronic kidney disease, or unspecified chronic kidney disease; N18.3 Chronic kidney disease, stage 3 (moderate); I50.22 Chronic systolic (congestive) heart failure; G47.33 Obstructive sleep apnea (adult) (pediatric); E55.9 Vitamin D deficiency, unspecified; K59.00 Constipation, unspecified; M19.90 Unspecified osteoarthritis, unspecified site; I25.119 Atherosclerotic heart disease of native coronary artery with unspecified angina pectoris; M06.9 Rheumatoid arthritis, unspecified; I25.2 Old myocardial infarction; Z79.899 Other long term (current) drug therapy; Z79.4 Long term (current) use of insulin; Z88.6 Allergy status to analgesic agent; Z95.5 Presence of coronary angioplasty implant and graft; Z82.49 Family history of ischemic heart disease and other diseases of the circulatory system; Z79.02 Long term (current) use of antithrombotics/antiplatelets
CPT/HCPCS: 93005 ×2; 99285; 36415; 82553 ×2; 82962; 82550 ×2; 82565; 85025 ×2; 85610; 80053 ×2; 84484 ×2; 80061; 71045; 71275; 93010 ×2; G0378 ×2; A9270 ×12; J3490 ×2; J2270; J3480; J7030; J7040; J1815

== ENCOUNTER → 2018-01-27 | Outpatient (CLI) | payer MEDICARE, BC, OTHER ==
--- NOTE | 2018-01-27 11:27 | RADIOLOGY REPORT (SQ) ---
EXAM DESCRIPTION: HIP RIGHT AP/LATERAL COMPLETED DATE/TIME: 01/27/2018 11:00 am REASON FOR STUDY: PAIN IN RIGHT HIP M25.551 PAIN IN RIGHT HIP COMPARISON: None. NUMBER OF VIEWS: Two views. TECHNIQUE: AP and frog-leg view of the right hip. LIMITATIONS: None. FINDINGS: MINERALIZATION: Normal. RIGHT HIP: There is joint space narrowing and subchondral sclerosis. No acute fracture or dislocatio n. OPPOSITE HIP: There are mild degenerative changes in the left hip as well. SOFT TISSUES: No findings. OTHER: No other significant finding. IMPRESSION: Mild degenerative changes in both hips. No acute fracture or dislocation. TECHNICAL DOCUMENTATION: JOB ID: [id number] [employer]- All Rights Reserved Reading location - IP/workstation name: [email or web address]
== END ==
LOC: OD 10:31
PROVIDERS: ATTEND Internal Medicine
DX: M25.551 Pain in right hip (principal)

== ENCOUNTER → 2018-04-15 | Outpatient (CLI) | payer MEDICARE, BC, OTHER ==
[2018-04-15 11:45] LABS: ANION GAP 11 (5-19); BLOOD UREA NITROGEN 32 mg/dL (7-20); CALCIUM 9.7 mg/dL (8.4-10.2); CARBON DIOXIDE 34 mmol/L (22-30); CHLORIDE 102 mmol/L (98-107); GLUCOSE 122 mg/dL (75-110); POTASSIUM 3.6 mmol/L (3.6-5.0); SODIUM 147.1 mmol/L (137-145)
== END ==
LOC: OD 10:27
PROVIDERS: ATTEND Physician Assistant
DX: I25.10 Atherosclerotic heart disease of native coronary artery without angina pectoris (principal)
CPT/HCPCS: 36415; 80048